=== PATIENT | male | born 1960 | race Caucasian/White ===

== ENCOUNTER 2018-06-12 19:17 | Observation (INO) ==
[2018-06-12] MEDS ORDERED: Famotidine PF Inj 20 MG/2 ML Vial IV.PUSH ONE (19:45)
--- NOTE | 2018-06-12 19:57 | ED ---
HPI General Chief complaint: Chest Pain Stated complaint: Chest Pain Time Seen by Provider: 06/12/18 19:32 Source: patient Mode of arrival: EMS Limitations: no limitations History of Present Illness HPI narrative: The patient is a 58 year old male who presents to the [facility] emergency department with a history of left-sided chest pain, upper portion of the chest that the patient reports began suddenly just prior to arrival while he was talking with his . He reports that the pain is sharp in character. He reports that it was severe initially and lasted for 2-3 minutes, however after sitting the pain started to subside. He reports that he is pain-free currently, however he does report having continued shortness of breath. The patient is visiting from [place]. He reports that he has had shortness of breath for the last 2 weeks. He reports that he has a history of shortness of breath that developed 5 years ago prior to having a cardiac stent placed. 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 He reports that he takes low-dose aspirin twice daily. He was given by ambulance services and additional 243 mg of aspirin prior to arrival. He denies having any cough or congestion. He reports that over the last 2 weeks he has had difficulties with indigestion in spite of taking his usual medication for indigestion. He reports that it seems to come and go and waxes and wanes in severity. Incidentally, the patient additionally reports that he was started on pravastatin for hyperlipidemia and began to have a left-sided leg pain. He reports that he is followed at the [facility] and the pravastatin was discontinued and he now reports that the pain is resolved. He denies having any swelling of his legs or erythema of his legs. He denies having any prior history of DVT, PE, or myocardial infarction. He denies having any associated nausea with this chest pain. He denies having any diaphoresis. He denies having any radiation of pain. On review of systems otherwise, the patient denies having any known recent fevers, neck pain, abdominal pain, vomiting, diarrhea, urinary symptoms, or neurologic symptoms. Related Data Home Medications Medication Instructions Recorded Confirmed aspirin [Aspirin Low Dose] 06/12/18 lisinopril 2.5 mg PO DAILY 06/12/18 06/12/18 omeprazole 20 mg PO DAILY 06/12/18 06/12/18 Allergies Allergy/AdvReac Type Severity Reaction Status Date / Time No Known Allergies Allergy Verified 06/12/18 19:33 Review of Systems ROS: all other systems reviewed are negative [facility] Medical History Medical History GERD (gastroesophageal reflux disease) (Acute) Hypercholesterolemia (Acute) Hypertension (Acute) Surgical History Surgical History History of heart artery stent (Acute) Social History Social History Substance History: No History of Abuse Second Hand Smoke Exposure: No Smoking Status: Never smoker How Often Do You Have a Drink Containing Alcohol: 2 to 4 times a month Recent Travel in [facility] within the Last 8 Weeks: No Recent Out of Country Travel within the Last 8 Weeks: No Immunization History Tetanus Immunization: >5 Years Exam Const General: cooperative, no acute distress and well developed Nutritional Appearance: obese Orientation: alert, awake and oriented x3 HENMT Head: normocephalic and atraumatic Nose: no nasal discharge and no epistaxis Mouth: moist mucous membranes Throat: posterior oropharynx normal and uvula midline Eyes Sclera: normal sclerae Pupils: PERRL Neck Neck: no meningeal signs, trachea midline and no JVD Resp Effort & Inspection: no use of accessory muscles Auscultation: clear to auscultation bilaterally Cardio Rate: regular rate Rhythm: regular rhythm Heart Sounds: no murmurs GI Inspection: non-distended Palpation: soft, no hepatosplenomegaly, no guarding, no hepatosplenomegaly, not rigid and nontender Auscultation: normal bowel sounds Back/Spine/Pelvis Back: no CVA tenderness Skin General: dry skin (warm) Neuro General: alert, awake, oriented x3 and other (Grossly nonfocal) Speech: speech normal Motor: no movement abnormalities noted Extrem General: normal to inspection (2+ pulses in all 4 extremities), no calf tenderness, no clubbing, no cyanosis and no edema Psych Mood: congruent mood Affect: normal affect Judgment: judgment good Course Initial Documented Vital Signs Temperature 98.4 F 06/12/18 19:19 Pulse Rate 91 H 06/12/18 19:19 Respiratory Rate 17 06/12/18 19:19 Last Documented Vital Signs Temperature 98.4 F 06/12/18 19:30 Pulse Rate 93 H 06/12/18 20:09 Respiratory Rate 17 06/12/18 19:30 Blood Pressure 141/91 H 06/12/18 19:30 Pulse Oximetry 95 06/12/18 20:09 Medical Decision Making MDM Narrative Medical decision making narrative: During the course of the patient's emergency department visit, the patient's history, examination, and differential diagnosis were reviewed with the patient. The patient was placed on a air sampling and monitoring with oximetry and frequent blood pressure monitoring. The patient had IV access obtained and blood work sent for analysis. A diagnostic evaluation was started regarding the patient's chest pain. The patient was initially provided nitroglycerin sublingual x1, nitroglycerin 1 inch to the chest wall. The patient's diagnostic studies are remarkable for a white count of 8.8, hemoglobin 17.2, platelets are 181 with 9.9 monocytes, PT PTT within normal limits, d-dimer is less than 0.19 decreasing the likelihood of pulmonary embolism in this patient with no other significant risk factors. Chemistries remarkable for chloride of 111, creatinine 1.36, GFR 54, cardiac enzymes initial set are within normal, lipase within normal limits. The patient's chest x-ray reveals no acute findings. The patient's results were discussed with the patient, including the plan of care. I explained that further testing and/ or monitoring is indicated based on the patient's history, examination, and/ or laboratory findings. Therefore, I recommended admission for additional evaluation. The patient expressed understanding and was agreeable with this plan. The patient was admitted to the hospital in stable condition and sent to a bed under the care of the [facility]. Medical Screen Exam Complete: Yes Emergency Medical Condition: Yes Differential Diagnosis Differential Diagnosis: Acute coronary syndrome, versus congestive heart failure , versus pulmonary embolism, versus pneumothorax Medical Records Medical records reviewed: Yes I reviewed the patient's medical records. Lab Data Lab results reviewed: Yes I reviewed the patient's lab results. Result diagrams: 06/12/18 19:30 06/12/18 19:30 Lab Results 06/12/18 06/12/18 06/12/18 Range/Units 19:30 19:30 19:30 WBC 8.8 (4.0-11.0) th/mm3 RBC 5.92 H (4.50-5.90) mil/mm3 Hgb 17.2 H (13.0-17.0) gm/dL Hct 51.4 H (39.0-51.0) % MCV 86.8 (80.0-100.0) fL MCH 29.0 (27.0-34.0) pg MCHC 33.4 (32.0-36.0) % RDW 14.1 (11.6-17.2) % Plt Count 181 (150-450) th/mm3 MPV 9.7 (7.0-11.0) fL Neut % (Auto) 61.2 (16.0-70.0) % Lymph % (Auto) 26.6 (9.0-44.0) % [place] % (Auto) 9.9 H (0.0-8.0) % Eos % (Auto) 1.2 (0.0-4.0) % Baso % (Auto) 1.1 (0.0-2.0) % Neut # (Auto) 5.4 (1.8-7.7) th/mm3 Lymph # (Auto) 2.3 (1.0-4.8) th/mm3 [place] # (Auto) 0.9 (0.0-0.9) th/mm3 Eos # (Auto) 0.1 (0.0-0.4) th/mm3 Baso # (Auto) 0.1 (0.0-0.2) th/mm3 WBC Differential . Differential Comment Auto diff final PT 10.4 (9.8-11.6) sec INR 1.0 Ratio APTT 26.7 (23.4-31.7) sec D-Dimer Quant (PE/DVT) Less than 0.19 (0.00-0.50) mg/L FEU Sodium 143 (136-145) meq/L Potassium 4.0 (3.5-5.1) meq/L Chloride 111 H (98-107) meq/L Carbon Dioxide 22.7 (21.0-32.0) meq/L Anion Gap 9 (5-15) meq/L BUN 16 (7-18) mg/dL Creatinine 1.36 H (0.60-1.30) mg/dL Estimated GFR 54 L (>89) mL/min Random Glucose 95 (74-106) mg/dL Calcium 8.6 (8.5-10.1) mg/dL Magnesium 2.1 (1.5-2.5) mg/dL Total Bilirubin 0.4 (0.2-1.0) mg/dL AST 24 (15-37) U/L ALT 30 (12-78) U/L Alkaline Phosphatase 104 (45-117) U/L Total Creatine Kinase 152 (39-308) U/L CK-MB (CK-2) 1.0 (0.5-3.6) ng/mL Troponin I Less than 0.02 L (0.02-0.05) ng/mL Total Protein 7.7 (6.4-8.2) g/dL Albumin 4.3 (3.4-5.0) g/dL Lipase 208 (73-393) U/L Imaging Data Radiologist's impression: Chest X-Ray 06/12/18 19:33 CONCLUSION: No acute findings. ECG Data Attestation: I personally reviewed and interpreted this ECG as follows: Interpretation: The patient had an EKG done on arrival. The patient's EKG reveals a sinus rhythm heart rate of 88, QRS duration 92 ms, QTC [address] segment elevation is noted. T waves are inverted in lead III. Discharge Plan Discharge Disposition Patient Disposition: ED Admit(ED Internal Use Only) Discharge Details Diagnosis: Chest pain, rule out acute myocardial infarction Physicians Team ED Provider: Deyanira Mendes Primary Care Provider: UNKNOWN, Rxs /Orders / Referrals /Forms Prescriptions: No Action lisinopril 2.5 mg Tablet 2.5 mg PO DAILY RF: 0 aspirin [Aspirin Low Dose] 81 mg Tablet,Delayed Release (Dr/Ec) RF: 0 omeprazole 20 mg Capsule,Delayed Release(Dr/Ec) 20 mg PO DAILY RF: 0 Discharge Instructions Patient Printed Instructions: Chest Pain (ED) Status ED Status: With Doctor
[2018-06-12 20:02] LABS: Baso # (Auto) 0.1 th/mm3 (0.0-0.2); Baso % (Auto) 1.1 % (0.0-2.0); Eos # (Auto) 0.1 th/mm3 (0.0-0.4); Eos % (Auto) 1.2 % (0.0-4.0); Hematocrit 51.4 % (39.0-51.0); Hemoglobin 17.2 gm/dL (13.0-17.0); Lymph # (Auto) 2.3 th/mm3 (1.0-4.8); Lymph % (Auto) 26.6 % (9.0-44.0); Mean Corpuscular HGB Conc 33.4 % (32.0-36.0); Mean Corpuscular Volume 86.8 fL (80.0-100.0); Mean Platelet Volume 9.7 fL (7.0-11.0); Mono # (Auto) 0.9 th/mm3 (0.0-0.9); Mono % (Auto) 9.9 % (0.0-8.0); Neut # (Auto) 5.4 th/mm3 (1.8-7.7); Neut % (Auto) 61.2 % (16.0-70.0); Platelet Count 181 th/mm3 (150-450); Red Blood Count 5.92 mil/mm3 (4.50-5.90); Red Cell Distribution Width 14.1 % (11.6-17.2); White Blood Count 8.8 th/mm3 (4.0-11.0)
--- NOTE | 2018-06-12 20:16 | XR ---
EXAM DATE: 06/12/2018 7:55 PM EST AGE/SEX: 58 years / Male INDICATIONS: Chest pain. CLINICAL DATA: This is the patient's initial encounter. Patient reports that signs and symptoms have been present for 1 day and indicates a pain score of 6/10. MEDICAL/SURGICAL HISTORY: None. . Cardiac stent. COMPARISON: No prior exams available for comparison. FINDINGS: A single AP view of the chest demonstrates the lungs to be symmetrically aerated without evidence of mass, infiltrate or effusion. The cardiomediastinal contours are unremarkable. Osseous structures a re intact. CONCLUSION: No acute findings. Electronically signed by: Sravan Fuentes MD Board Certified Radiologist 06/12/2018 8:15 PM EST
[2018-06-12 20:23] LABS: Albumin 4.3 g/dL (3.4-5.0); Anion Gap 9 meq/L (5-15); Aspartate Aminotransferase 24 U/L (15-37); Blood Urea Nitrogen 16 mg/dL (7-18); Calcium 8.6 mg/dL (8.5-10.1); Carbon Dioxide 22.7 meq/L (21.0-32.0); Chloride 111 meq/L (98-107); Glomerular Filtration Rate 54 mL/min (>89); Glucose,Random 95 mg/dL (74-106); Lipase 208 U/L (73-393); Magnesium 2.1 mg/dL (1.5-2.5); Sodium 143 meq/L (136-145)
[2018-06-12 20:24] LABS: Activated Partial Thrombo Time 26.7 sec (23.4-31.7); Alanine Aminotransferase 30 U/L (12-78); Alkaline Phosphatase 104 U/L (45-117); Creatine Kinase 152 U/L (39-308); Prothrombin Time 10.4 sec (9.8-11.6); Total Protein 7.7 g/dL (6.4-8.2)
[2018-06-12 23:06] LABS: Creatine Kinase 134 U/L (39-308)
[2018-06-13 00:35] VITALS: RESP 16
[2018-06-13 02:27] LABS: Creatine Kinase 119 U/L (39-308)
[2018-06-13 04:29] VITALS: O2SAT 96
--- NOTE | 2018-06-13 08:33 | P.HPCA ---
History of Present Illness Primary Care Physician: UNKNOWN Chief Complaint: Chest pain History of Present Illness: This is a 58-year-old male with history of CAD with a stent 5 years ago, hypertension, and hyperlipidemia that is visiting from [place] to see the [employer] and comes to the ED with complaint of chest discomfort. States that over the last 2 weeks he has been having shortness of breath with mild activity and also noticed that he is getting fatigued much easier than usual. These 2 symptoms are very similar to what led him to have a stent 5 years ago. He spoke with the strategic marketing specialist office last week regarding the symptoms and was being set up for an appointment this week to be evaluated by his strategic marketing specialist. Yesterday while watching the race he developed a left upper sharp discomfort that had lasted for 3 or 4 minutes but also had a tightness in his chest and the left side that lasted for about 30 minutes. States is never had this before. He was immediately concerned and told his that he had to go to the hospital. EMS was summoned and he was brought to the ED. He was still having the tightness in his chest when he arrived in the emergency department. States he was given sublingual nitroglycerin which immediately resolved the tightness. He was short of breath and diaphoretic with the symptoms as well. Denied nausea. Currently feels fine. Denies recent illness. Denies fevers or chills. Has hyperlipidemia and was taking pravastatin for this however he was having muscle aches, medication was discontinued through his PCP at the [facility] and symptoms resolved. States he has not been restarted on a different cholesterol medication. Past medical history: CAD with stent 5 years ago. Hypertension and hyperlipidemia. Denies diabetes. Family history: States his father age 56 of an [place]. States he also has outlived all of his uncles from his father side since that all of cardiac issues at a younger age than he. Social history: Lifetime non-smoker. Rarely has alcohol. Denies illicit drugs. 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 He is . - Diagnosis (1) Chest pain (2) History of coronary artery disease (3) History of heart artery stent (4) Hypertension (5) Hyperlipidemia Review of Systems General: Patient denies fevers, chills, and recent travel. HEENT: Patient denies headache, sore throat, difficulty swallowing. Cardiovascular: Has the chest discomfort as mentioned above. Denies sensation of heart beating rapidly or irregularly. No syncope. He was diaphoretic. Respiratory: He was short of breath. Denies inspirational chest discomfort. Denies coughing wheezing or hemoptysis. GI: Patient denies nausea, vomiting, diarrhea, abdominal pain, bloody stools. Musculoskeletal: Patient denies joint pain or edema. Denies calf pain or edema. Neurovascular: Patient denies numbness, tingling, weakness in extremities. Denies headache. Endocrine: Denies polyuria and polydipsia. Hematologic: Denies easy bruising. Skin: Denies rash or itching. PMFSH - History History Provided By: Patient - Medical History Medical History: Medical History (Last Reviewed 06/12/18 @ 19:54 by Deyanira Mendes MD) GERD (gastroesophageal reflux disease) Hypercholesterolemia Hypertension - Surgical History Surgical History: Surgical History (Last Reviewed 06/12/18 @ 19:54 by Deyanira Mendes MD) History of heart artery stent - Tobacco History Second Hand Smoke Exposure: No Tobacco Use In Past 30 Days: No Smoking Status: Never smoker - Alcohol History How Often Do You Have a Drink Containing Alcohol: 2 to 3 times a week - Substance Use History Substance History: No History of Abuse - Travel History Recent Travel in the [place] Within the Last 8 Weeks: No Recent Travel Out of the Country Within the Last 8 Weeks: No - Immunization History Tetanus Immunization: >5 Years Medications and Allergies Active Medications: Active Medications Albuterol (Albuterol Neb (Prn)) 2.5 mg NEB UNSCH PRN PRN Reason: SHORTNESS OF BREATH/WHEEZING Albuterol (Duoneb Neb (Prn)) 1 ampul NEB UNSCH PRN PRN Reason: SHORTNESS OF BREATH/WHEEZING Regadenoson (Lexiscan Inj) 0.4 mg IV.PUSH ONCE ONE Stop: 06/13/18 08:18 Sodium Chloride (Ns Flush) 2 ml IV.FLUSH UNSCH PRN PRN Reason: FLUSH AFTER USING IV ACCESS Sodium Chloride (Ns Flush) 2 ml IV.FLUSH BID YASMEEN Last Admin: 06/12/18 20:45 Dose: 2 ml Sodium Chloride (Ns Flush) 2 ml IV.FLUSH PRN PRN PRN Reason: FLUSH AFTER USING IV ACCESS Allergies Allergy/AdvReac Type Severity Reaction Status Date / Time No Known Allergies Allergy Verified 06/12/18 19:33 Home Medications Medication Instructions Recorded Confirmed Type aspirin [Aspirin Low Dose] 162 mg PO DAILY 06/12/18 06/13/18 History lisinopril 2.5 mg PO DAILY 06/12/18 06/12/18 History omeprazole 20 mg PO DAILY 06/12/18 06/12/18 History Fish Oil 1 cap PO BID 06/13/18 06/13/18 History metoprolol tartrate 37.5 mg PO BID 06/13/18 06/13/18 History Exam Vital signs: Vital Signs 06/12/18 19:19 06/12/18 19:30 06/12/18 19:36 Temperature 98.4 F 98.4 F Pulse Rate 91 H 98 H Respiratory Rate 17 17 Blood Pressure 141/91 H Pulse Oximetry 96 96 06/12/18 20:09 06/12/18 21:03 06/12/18 22:11 Temperature 98.0 F Pulse Rate 93 H 77 76 Respiratory Rate 16 18 Blood Pressure 109/68 121/86 Pulse Oximetry 95 96 97 06/13/18 00:00 06/13/18 03:50 06/13/18 04:00 Temperature 98.0 F 97.9 F 97.2 F L Pulse Rate 75 77 71 Respiratory Rate 18 16 16 Blood Pressure 121/86 101/60 121/76 Pulse Oximetry 97 94 L 96 06/13/18 07:37 Temperature 98.1 F Pulse Rate 73 Respiratory Rate 16 Blood Pressure 123/83 Pulse Oximetry 96 Intake & Output 06/12/18 06/13/18 06/13/18 18:59 06:59 18:59 Intake Total 520 / 520 Balance 520 / 520 Weight 99.79 kg Intake: Oral 520 / 520 Other: # Voids 2 Date of Last Bowel Movement 06/12/18 Narrative: GENERAL: This is a well-nourished, well-developed patient, in no apparent distress. Patient speaks in clear complete sentences. Patient is pleasant. HEENT: Head is atraumatic and normocephalic. Neck is supple without lymphadenopathy and trachea is midline. No JVD or carotid bruits. CARDIOVASCULAR: Regular rate and rhythm without murmurs, gallops, or rubs. RESPIRATORY: Clear to auscultation. Breath sounds equal bilaterally. No wheezes , rales, or rhonchi. Chest wall is nontender. No use of accessory muscles. GASTROINTESTINAL: Abdomen is nontender, nondistended. Abdomen soft. No obvious pulsatile mass or bruit. No CVA tenderness. Strong femoral pulses bilaterally. Normal bowel sounds in all quadrants. MUSCULOSKELETAL: Patient is moving upper and lower extremities freely. No calf tenderness or edema, no Homans sign. Strong pulses in upper and lower extremities. NEUROLOGICAL: Patient is alert and oriented. Cranial nerves 2-12 are grossly intact. No focal deficits and speech is clear. SKIN: No rash and turgor is normal. Results 06/12/18 19:30 06/12/18 19:30 Cardiac Enzymes 06/12/18 06/12/18 06/12/18 Range/Units 19:30 19:30 22:32 AST 24 (15-37) U/L CK-MB (CK-2) 1.0 (0.5-3.6) ng/mL Troponin I Less than 0.02 L Less than 0.02 L (0.02-0.05) ng/mL B-Natriuretic Peptide 20 (0-100) pg/mL 06/13/18 Range/Units 01:50 AST (15-37) U/L CK-MB (CK-2) (0.5-3.6) ng/mL Troponin I Less than 0.02 L (0.02-0.05) ng/mL B-Natriuretic Peptide (0-100) pg/mL Coagulation 06/12/18 06/12/18 Range/Units 19:30 19:30 PT 10.4 (9.8-11.6) sec APTT 26.7 (23.4-31.7) sec B-Natriuretic Peptide 20 (0-100) pg/mL CBC 06/12/18 Range/Units 19:30 WBC 8.8 (4.0-11.0) th/mm3 RBC 5.92 H (4.50-5.90) mil/mm3 Hgb 17.2 H (13.0-17.0) gm/dL Hct 51.4 H (39.0-51.0) % Plt Count 181 (150-450) th/mm3 Neut # (Auto) 5.4 (1.8-7.7) th/mm3 Lymph # (Auto) 2.3 (1.0-4.8) th/mm3 [place] # (Auto) 0.9 (0.0-0.9) th/mm3 Eos # (Auto) 0.1 (0.0-0.4) th/mm3 Baso # (Auto) 0.1 (0.0-0.2) th/mm3 Comprehensive Metabolic Panel 06/12/18 Range/Units 19:30 Sodium 143 (136-145) meq/L Potassium 4.0 (3.5-5.1) meq/L Chloride 111 H (98-107) meq/L Carbon Dioxide 22.7 (21.0-32.0) meq/L BUN 16 (7-18) mg/dL Creatinine 1.36 H (0.60-1.30) mg/dL Calcium 8.6 (8.5-10.1) mg/dL AST 24 (15-37) U/L ALT 30 (12-78) U/L Alkaline Phosphatase 104 (45-117) U/L Total Protein 7.7 (6.4-8.2) g/dL Albumin 4.3 (3.4-5.0) g/dL Intake and Output 06/12/18 06/13/18 06/13/18 22:59 06:59 14:59 Intake Total 520 / 520 Balance 520 / 520 Intake: Oral 520 / 520 Other: # Voids 2 Date of Last Bowel Movement 06/12/18 Weight 99.79 kg - Imaging and Cardiology Imaging: Impressions Chest X-Ray 06/12/18 19:33 CONCLUSION: No acute findings. EKG interpretations - EKG EKG shows: sinus rhythm (EKGs are sinus rhythm without significant ST segment depressions or elevations.) Caprini VTE Risk Assessment Caprini VTE Risk Assessment: No/Low Risk (score <= 1) Caprini Risk Assessment Model: Point Value = 1 Point Value = 2 Point Value = 3 Point Value = 5 Age 41-60 Minor surgery BMI > 25 kg/m2 Swollen legs Varicose veins or History of unexplained or recurrent spontaneous Oral contraceptives or hormone replacement Sepsis (< 1 month) Serious lung disease, including pneumonia (< 1 month) Abnormal pulmonary function Acute myocardial infarction Congestive heart failure (< 1 month) History of inflammatory bowel disease Medical patient at bed rest Age 61-74 Arthroscopic surgery Major open surgery (> 45 min) Laparoscopic surgery (> 45 min) Malignancy Confined to bed (> 72 hours) Immobilizing plaster cast Central venous access Age >= 75 History of VTE Family history of VTE Factor V Leiden Prothrombin [id number] Lupus anticoagulant Anticardiolipin antibodies Elevated serum homocysteine Heparin-induced thrombocytopenia Other congenital or acquired thrombophilia Stroke (< 1 month) Elective arthroplasty Hip, pelvis, or leg fracture Acute spinal cord injury (< 1 month) Prophylaxis Regimen: Total Risk Factor Score Risk Level Prophylaxis Regimen 0-1 Low Early ambulation 2 Moderate Order ONE of the following: *Sequential Compression Device (SCD) *Heparin 5000 units SQ BID 3-4 Higher Order ONE of the following medications: *Heparin 5000 units SQ TID *Enoxaparin/Lovenox 40 mg SQ daily (WT < 150 kg, CrCl > 30 mL/min) *Enoxaparin/Lovenox 30 mg SQ daily (WT < 150 kg, CrCl > 10-29 mL/min) *Enoxaparin/Lovenox 30 mg SQ BID (WT < 150 kg, CrCl > 30 mL/min) AND/OR *Sequential Compression Device (SCD) 5 or more Highest Order ONE of the following medications: *Heparin 5000 units SQ TID (Preferred with Epidurals) *Enoxaparin/Lovenox 40 mg SQ daily (WT < 150 kg, CrCl > 30 mL/min) *Enoxaparin/Lovenox 30 mg SQ daily (WT < 150 kg, CrCl > 10-29 mL/min) *Enoxaparin/Lovenox 30 mg SQ BID (WT < 150 kg, CrCl > 30 mL/min) AND *Sequential Compression Device (SCD) Assessment and Plan - Assessment (1) Chest pain Code(s): R07.9 - Chest pain, unspecified Status: Acute (2) History of coronary artery disease Code(s): Z86.79 - Personal history of other diseases of the circulatory system Status: Acute (3) History of heart artery stent Code(s): Z95.5 - Presence of coronary angioplasty implant and graft Status: Acute (4) Hypertension Code(s): I10 - Essential (primary) hypertension Status: Acute (5) Hyperlipidemia Code(s): E78.5 - Hyperlipidemia, unspecified Status: Acute - Plan * Chest pain: Patient has had serial cardiac enzymes and EKGs for ruling out purposes. He will be seen by Dr. Mcdowell of cardiology in the chest pain center. He will have a Lexiscan and further plan pending results of the stress test. He will need follow-up with his strategic marketing specialist. He should return to ED for interval issues. * CAD: History of stent about 5 years ago. Will be reassessed with stress testing. He should resume his home medications and also discuss being placed back on cholesterol medication with his physician. * Hyperlipidemia: Discussed with his doctors about being placed back on cholesterol medication. * Hypertension: Continue medication. Patient is stable at this time. He is agreeable to this plan. H&P: Quality - VTE Deep Vein Thrombosis/Pulmonary Embolism Present on Admission: No
[2018-06-13] MEDS ORDERED: Aspirin 325 MG Tablet PO SCH (09:00)
[2018-06-13] MEDS ORDERED: Regadenoson Inj 0.4 MG/5 ML Syringe IV.PUSH ONE (09:00)
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
--- NOTE | 2018-06-13 10:24 | NM ---
EXAM DATE: 06/13/2018 10:16 AM EST AGE/SEX: 58 years / Male INDICATIONS:Angina. . Substernal chest pain. CLINICAL DATA: This is the patient's initial encounter. Patient reports that signs and symptoms have been present for 1 day and indicates a pain score of 5/10. MEDICAL/SURGICAL HISTORY: Hypertension. Gastroesophageal reflux disease. Coronary artery stent . COMPARISON: No prior exams available for comparison. DOSE: 11 mCi Tc 99m Myoview at rest 35 mCi [id number] at stress 0.4 mg Lexiscan STRESS SYMPTOMS: Flushed feeling. EJECTION FRACTION: 66 % TECHNIQUE: The patient underwent pharmacologic stress with infusion of prescribed dose. Continuous ECG tracing was monitored during stress. Gated SPECT imaging was performed after stress and conventi onal SPECT imaging was performed at rest. The examination was performed on a SPECT/CT scanner, both attenuation and non-corrected datasets were reviewed. FINDINGS: Best perfused myocardium is the anterior wall followed by the inferior wall. There is very minimal redistribution in the high anterior wall towards the base involving a very smal l segment of myocardium a borderline significant. There is normal wall motion. The ejection fraction is calculated at 66%. RISK CATEGORY: Low (<1% Annual Mortality Rate) CONCLUSION: 1. Minimal changes as above of questionable significance.. Please see above discussion. Electronically signed by: Murray Haq MD Board Certified Radiologist 06/13/2018 10:22 AM EST
[2018-06-13 11:54] VITALS: BP 139/71; PULSE 89; TEMP 97.9
[2018-06-13] MEDS ORDERED: Pantoprazole Sodium 20 MG DR Tablet PO SCH (12:30)
[2018-06-13] MEDS ORDERED: Lisinopril 5 MG Tablet PO SCH (12:30)
[2018-06-13] MEDS ORDERED: Metoprolol Tartrate 25 MG Tablet PO SCH (12:30)
--- NOTE | 2018-06-13 15:31 | ECG ---
Date Performed: 06/13/2018 Time Performed: 01:37:57 PTAGE: 58 years EKG: Sinus rhythm NORMAL ECG PREVIOUS TRACING : 06/12/2018 22.50 DOCTOR: Hiram Mcdowell Interpretating Date/Time 06/13/2018 15:28:35
--- NOTE | 2018-06-13 15:32 | ECG ---
Date Performed: 06/12/2018 Time Performed: 22:50:58 PTAGE: 58 years EKG: Sinus rhythm NORMAL ECG PREVIOUS TRACING : 06/12/2018 19.26 DOCTOR: Hiram Mcdowell Interpretating Date/Time 06/13/2018 15:30:18
--- NOTE | 2018-06-13 15:32 | ECG ---
Date Performed: 06/12/2018 Time Performed: 19:26:46 PTAGE: 58 years EKG: Sinus rhythm BORDERLINE LEFT AXIS DEVIATION BORDERLINE ECG NO PREVIOUS TRACING DOCTOR: Hiram Mcdowell Interpretating Date/Time 06/13/2018 15:30:45
--- NOTE | 2018-06-13 15:35 | TR ---
Date Performed: 06/13/2018 Time Performed: 09:23:29 DOCTOR: Hiram Mcdowell DRUG LIST: CLINICAL HISTORY: REASON FOR TEST: REASON FOR ENDING: OBSERVATION: CONCLUSION: Lexiscan stress test was performed under standard four minute protocol. Radionuclide was injected one minute prior to ending the test. No electrocardiographic abormalities were present to suggest ischemia. Nuclear imaging and interpretation are pending. COMMENTS:
== END 2018-06-13 16:02 | disposition home or self-care (01) ==
LOC: NEDA 19:17 → NEPE 19:17 → NEDA 21:51 → NEPHCDU 22:08
PROVIDERS: ADMIT Internal Medicine Interventional Cardiology; ATTEND Internal Medicine Interventional Cardiology
DX: E78.5 Hyperlipidemia, unspecified; K21.9 Gastro-esophageal reflux disease without esophagitis; Z79.82 Long term (current) use of aspirin; R07.89 Other chest pain; R06.02 Shortness of breath; I25.10 Atherosclerotic heart disease of native coronary artery without angina pectoris; I10 Essential (primary) hypertension; Z95.5 Presence of coronary angioplasty implant and graft; Z79.899 Other long term (current) drug therapy
CPT/HCPCS: 71010; 71045; 78452; 80053; 82550; 82552; 83520; 83690; 83735; 83880; 84484; 85025; 85379; 85610; 85730; 90774; 90784; 93005; 93017; 96374; 99285; A9502; C8952; G0378; J2785; Q9969